=== PATIENT | female | born 1995 | race Two or more races ===

== ENCOUNTER 2017-01-20 10:49 | Emergency (ER) | payer OTHER ==
[2017-01-20 10:57] VITALS: BP 121/79
--- NOTE | 2017-01-20 11:34 | RAD ---
PA CHEST AND RIGHT RIB SERIES Clinical Indication: R ant rib pain after wrestling and 4 days Comparison: Two-view chest 04/23/2016. Findings: The cardiomediastinal silhouette is normal. Pulmonary vasculature is normal. The lungs are clear. No pleural effusion or pneumothorax is seen. There is no acute displaced rib fracture. A subtle or nondisplaced rib fracture could be obscured. IMPRESSION: 1. No acute cardiopulmonary process. 2. No acute displaced rib fracture.
--- NOTE | 2017-01-20 11:42 | PHYS DOC ---
General Chief Complaint: RIB PAIN Stated Complaint: RT RIB PAIN/FEVER Time Seen by MD: 11:02 Source: patient Exam Limitations: no limitations Problems: History of Present Illness Initial Comments Patient is a 22-year-old female who comes to the ED complaining of rib pain. Patient states she's had right anterior lower rib pain for the past several days. 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 Symptoms are worse with certain movements and when she presses on it, better with rest and ice applied topically. She denies any trouble breathing she has history of asthma but states those symptoms are currently under control. Allergies: Coded Allergies: No Known Drug Allergies (Unverified , 04/23/16) Past Medical History Medical History: asthma Surgical History: noncontributory Social History Smoker: non-smoker Alcohol: none Drugs: none Review of Systems Constitutional: denies chills, denies diaphoresis, denies fever, denies malaise Respiratory: denies cough, denies shortness of breath Cardiovascular: denies chest pain, denies palpitations, denies syncope Gastrointestinal: see HPI, abdominal pain, denies constipation, denies diarrhea , nausea, denies vomiting Genitourinary: denies dysuria, denies frequency, denies hematuria Musculoskeletal: see HPI, denies back pain, denies joint swelling, denies neck pain Psychiatric/Neurological: denies headache, denies numbness, denies paresthesia Hematologic/Lymphatic: denies blood clots, denies easy bleeding, denies easy bruising Physical Exam General Appearance: WD/WN, no apparent distress Ear, Nose, Throat: hearing grossly normal, normal ENT inspection, normal pharynx Neck: non-tender, supple Respiratory: normal breath sounds, no respiratory distress, other (TTP at R ant -inf costal margin) Cardiovascular: normal peripheral pulses, regular rate, rhythm Gastrointestinal: normal bowel sounds, soft (RUQ TTP no r/g/mass), no organomegaly Rectal: deferred Back: no CVA tenderness, no vertebral tenderness Extremities: normal range of motion, non-tender, normal inspection Neurologic/Psychiatric: food service lead II-XII nml as tested, no motor/sensory deficits, alert, normal mood/affect, oriented x 3 Skin: normal color, warm/dry Orders, Labs, Meds PATIENT: KALYANAYDEE OLIVERA ACCOUNT: [id number] : 1995 LOCATION: ER AGE: 22 SEX: F EXAM STATUS: REG ER ORD. PHYSICIAN: JEFFRY LYN DO REASON: R ant rib pain after wrestling PROCEDURE: RIBS RIGHT AND PA CHEST PA CHEST AND RIGHT RIB SERIES Clinical Indication: R ant rib pain after wrestling and 4 days Comparison: Two-view chest 04/23/2016. Findings: The cardiomediastinal silhouette is normal. Pulmonary vasculature is normal. The lungs are clear. No pleural effusion or pneumothorax is seen. There is no acute displaced rib fracture. A subtle or nondisplaced rib fracture could be obscured. IMPRESSION: 1. No acute cardiopulmonary process. 2. No acute displaced rib fracture. DICTATED AND SIGNED BY: ADRIANA KHAN MD DATE: 01/20/17 112 CC: PCP,NO; JEFFRY LYN DO ~ 1149: Plain films negative for rib pathology. Patient does have right upper quadrant pain/tenderness, further questioning it does get worse after eating and and has limited her by mouth intake the past 2 days. She hasn't had any nausea or vomiting no fever chills bowel or bladder symptoms. Appetite remains intact but eating causes discomfort. PATIENT: AYDEE BIGGS ACCOUNT: [id number] : 1995 LOCATION: ER AGE: 22 SEX: F EXAM STATUS: REG ER ORD. PHYSICIAN: JEFFRY LYN DO REASON: RUQ pain PROCEDURE: ABDOMEN LTD Right upper quadrant abdominal ultrasound History: RUQ pain x3-4 days. Comparison: None. Technique: Transabdominal ultrasound images are obtained. Findings: Visualized pancreas is unremarkable. Liver is normal in echogenicity. Right hepatic lobe measures 17.5 cm, upper limits of normal. No focal hepatic masses are identified. Portal flow is hepatopedal. Gallbladder has an unremarkable appearance. Common bile duct caliber is normal measuring 5 mm in diameter. The right kidney measures 10.7 cm in length and is without evidence of obstruction or stone. The renal pyramids are mildly prominent. IVC is patent. IMPRESSION: Unremarkable right upper quadrant ultrasound. DICTATED AND SIGNED BY: ADRIANA KHAN MD DATE: 01/20/17 [id number] CC: PCP,NO; JEFFRY LYN DO ~ Urinalysis with squamous epithelial contamination await culture and sensitivity. I discussed findings with the patient at length. I discussed [id number] prescription medications and activity modification. I discussed signs and symptoms to monitor and indications for urgent return to the department. Patient 's questions were answered to her satisfaction and she expressed agreement and understanding with the treatment plan. Departure Time of Disposition: 14:07 Disposition: 01 HOME, SELF-CARE Diagnosis: costochondritis, nausea, dehydration Condition: STABLE Patient Instructions: Costochondritis, [id number], Dehydration, Adult, Easy- to-Read, Nausea and Vomiting, [id number] Additional Instructions: As discussed, no emergent condition noted from today's visit to explain your symptoms. Rib pain seems to be musculoskeletal in nature, costochondritis. Given your decreased appetite, nausea, and slight elevation of white blood cells you may be developing a stomach virus. No athletics or strenuous activity thru 01/23, note given. Rx: zofran odt Clear liquids today, advance to bland diet as tolerated tomorrow. Aggressive hydration with gatorade, water. OTC tylenol/ibuprofen as needed. Follow up with a doctor in 3-5 days if no improvement. Return to ED with new or changing symptoms. JEFFRY LYN DO Jan 20, 2017 11:42
[2017-01-20] MEDS ORDERED: IV NORMAL SALINE 1,000ML 1,000 ML IV SCH (11:47)
[2017-01-20 12:18] LABS: BASO % 0 % (0-3); EOS # 0.1 x10^3/uL (0.0-0.7); EOS % 1 % (0-3); HEMATOCRIT 37.6 % (36.0-47.0); HEMOGLOBIN 12.7 g/dL (12.0-15.5); LYMPH # 1.8 x10^3/uL (1.0-4.8); LYMPH % 16 % (24-48); MEAN CORPUSCULAR HEMOGLOBIN 31 pg (25-35); MEAN CORPUSCULAR HGB CONC 34 g/dL (31-37); MEAN CORPUSCULAR VOLUME 90 fL (79-100); MONO # 0.9 x10^3/uL (0.0-1.1); MONO % 8 % (0-9); NEUT # 8.6 x10^3uL (1.8-7.7); NEUT % 75 % (31-73); PLATELET COUNT 265 x10^3/uL (140-400); RED BLOOD COUNT 4.16 x10^6/uL (3.50-5.40); RED CELL DISTRIBUTION WIDTH 13.8 % (11.5-14.5); WHITE BLOOD COUNT 11.5 x10^3/uL (4.0-11.0)
[2017-01-20] MEDS ORDERED: KETOROLAC 30 MG/ML VIAL. IV ONE (12:20)
[2017-01-20 12:26] LABS: BACTERIA,URINE FEW /HPF (0-FEW); BILIRUBIN,URINE NEG (NEG); CLARITY,URINE HAZY; COLOR,URINE YELLOW; GLUCOSE,URINE NEG (NEG); NITRITE,URINE NEG (NEG); RBC,URINE RARE /HPF (0-2); SQUAMOUS EPITHELIAL CELL,UR OCC /LPF; UROBILINOGEN,URINE 0.2 mg/dL (0.2 mg/dL)
[2017-01-20 12:32] LABS: ALBUMIN/GLOBULIN RATIO 0.7 (1.0-1.7); CALCIUM 8.5 mg/dL (8.5-10.1); CREATININE 0.7 mg/dL (0.6-1.0); GFR 106.7; POTASSIUM 4.3 mmol/L (3.5-5.1); TOTAL BILIRUBIN 0.3 mg/dL (0.2-1.0); TOTAL PROTEIN 7.1 g/dL (6.4-8.2)
--- NOTE | 2017-01-20 13:47 | RAD ---
Right upper quadrant abdominal ultrasound History: RUQ pain x3-4 days. Comparison: None. Technique: Transabdominal ultrasound images are obtained. Findings: Visualized pancreas is unremarkable. Liver is normal in echogenicity. Right hepatic lobe measures 17.5 cm, upper limits of normal. No focal hepatic masses are identified. Portal flow is hepatopedal. Gallbladder has an unremarkable appearance. Common bile duct caliber is normal measuring 5 mm in diameter. The right kidney measures 10.7 cm in length and is without evidence of obstruction or stone. The renal pyramids are mildly prominent. IVC is patent. IMPRESSION: Unremarkable right upper quadrant ultrasound.
[2017-01-20] MEDS ORDERED: ONDA4TAB10 PO (14:06)
== END 2017-01-20 14:35 | disposition home or self-care (01) ==
LOC: ER 10:49
DX: M94.0 Chondrocostal junction syndrome [Tietze] (principal); E86.0 Dehydration; R11.0 Nausea; J45.909 Unspecified asthma, uncomplicated
CPT/HCPCS: 36415; 71101; 76705; 80053; 81001; 83690; 85025; 87086; 96361; 96374; 99285; J1885; J7030

== ENCOUNTER 2017-01-20 20:52 | Inpatient (IN) | payer OTHER ==
[~2017-01-20] VITALS: Ht 157.5 cm; Wt 67.2 kg
[~2017-01-20 20:52] MED LIST: ONDA4TAB10 PO
[2017-01-20] MEDS ORDERED: ONDANSETRON PF 4 MG/2 ML VIAL. IV ONE (22:00)
[2017-01-20] MEDS ORDERED: IV NORMAL SALINE 1,000ML 1,000 ML IV SCH (22:00)
[2017-01-20 22:03] LABS: BASO % 0 % (0-3); EOS # 0.1 x10^3/uL (0.0-0.7); EOS % 1 % (0-3); HEMATOCRIT 38.5 % (36.0-47.0); HEMOGLOBIN 12.8 g/dL (12.0-15.5); LYMPH # 2.4 x10^3/uL (1.0-4.8); LYMPH % 19 % (24-48); MEAN CORPUSCULAR HEMOGLOBIN 30 pg (25-35); MEAN CORPUSCULAR HGB CONC 33 g/dL (31-37); MEAN CORPUSCULAR VOLUME 91 fL (79-100); MONO % 8 % (0-9); NEUT # 9.1 x10^3uL (1.8-7.7); NEUT % 72 % (31-73); PLATELET COUNT 305 x10^3/uL (140-400); RED BLOOD COUNT 4.23 x10^6/uL (3.50-5.40); RED CELL DISTRIBUTION WIDTH 13.7 % (11.5-14.5); WHITE BLOOD COUNT 12.6 x10^3/uL (4.0-11.0)
[2017-01-20 22:06] LABS: ALBUMIN 3.5 g/dL (3.4-5.0); ALBUMIN/GLOBULIN RATIO 0.7 (1.0-1.7); CALCIUM 8.8 mg/dL (8.5-10.1); CREATININE 0.8 mg/dL (0.6-1.0); GFR 91.4; POTASSIUM 3.8 mmol/L (3.5-5.1); TOTAL BILIRUBIN 0.4 mg/dL (0.2-1.0); TOTAL PROTEIN 8.3 g/dL (6.4-8.2)
--- NOTE | 2017-01-20 22:38 | RAD ---
Indication: Right flank pain and right lower quadrant pain and tenderness. Vomiting. Technique: Axial images and coronal and sagittal reformatted images are provided. No comparison is available. One or more of the following individualized dose reduction techniques were utilized for this examination: 1. Automated exposure control 2. Adjustment of the mA and/or kV according to patient size 3. Use of iterative reconstruction technique Findings: There is atelectasis in the lung bases. There is no pleural effusion. The heart is not enlarged. Solid organ evaluation is limited without contrast. Liver is grossly unremarkable. Gallbladder is normal in appearance. Spleen is not enlarged. Pancreas and adrenals are unremarkable. No obstructing or nonobstructing calculus is identified. Neither ureter is dilated, neither ureter can be followed in its entirety. Aorta is normal caliber. Small bowel is normal caliber. Colon is grossly unremarkable. Normal appendix is noted. It extends down into the pelvis. Bladder is unremarkable. Uterus is retroverted. IUD is noted. Calcified phleboliths are present. There is no free pelvic fluid. There is probably a cyst or follicle in the right ovary measuring 3 cm. IMPRESSION: No acute abdominal findings. Electronically signed by: Balaji Ragland MD (01/20/2017 10:34 PM) [facility]
--- NOTE | 2017-01-20 23:05 | PHYS DOC ---
Past History Past Medical History: No Pertinent History Past Surgical History: No Surgical History Alcohol Use: None Drug Use: None Adult General Chief Complaint Chief Complaint: ABDOMINAL PAIN HPI HPI Patient is a 22-year-old female, student at the [employer], who presents ambulatory to the ED with the complaint of right-sided abdominal pain. Patient was seen here earlier today with the same complaint. She had labs, rib x -rays, and right upper quadrant ultrasound. All were unrevealing. She was discharged. Patient states that she never did really feel better. The pain became more severe and moved lower on the right side of her abdomen. She had nausea and dry heaves. She's never had pain like this before. 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 She thought she might have hurt her side wrestling a few days ago but it has just gotten worse. Patient denies fever or chills. Denies cough or shortness of breath. Denies urinary symptoms. Patient is in good general health. Review of Systems Review of Systems Constitutional: Denies fever or chills [] HENT: Denies nasal congestion or sore throat [] Respiratory: Denies cough or shortness of breath [] Cardiovascular: Denies chest pain GI: As in history of present illness : Denies dysuria or hematuria [] Musculoskeletal: Denies back pain or joint pain [] Integument: Denies rash or skin lesions [] Neurologic: Denies headache, focal weakness or sensory changes [] All other systems were reviewed and found to be within normal limits, except as documented in this note. Current Medications Current Medications Current Medications Medications (Trade) Dose Ordered Sig/Rolando Start Time Stop Time Status Last Admin Dose Admin Fentanyl Citrate (Fentanyl 2ml Vial) 50 mcg PRN Q15MIN PRN 01/20/17 22:00 01/21/17 21:59 01/20/17 22:41 50 MCG Ondansetron HCl (Zofran) 4 mg 1X ONCE 01/20/17 22:00 01/20/17 22:01 DC 01/20/17 22:01 4 MG Sodium Chloride 1,000 ml @ 1,000 mls/hr Q1H 01/20/17 22:00 01/20/17 22:59 DC 01/20/17 22:01 1,000 MLS/HR Allergies Allergies Allergies Coded Allergies Type Severity Reaction Last Updated Verified No Known Drug Allergies 2/20/17 No Physical Exam Physical Exam Constitutional: Well developed, well nourished, tearful, uncomfortable, pain worsens with position change. Afebrile. HENT: Normocephalic, atraumatic, bilateral external ears normal, nose normal. [ ] Eyes: conjunctiva normal, no discharge. [] Neck: Normal range of motion, no stridor. [] Cardiovascular:Heart rate regular rhythm, no murmur [] Lungs & Thorax: Bilateral breath sounds clear to auscultation [] Abdomen: Bowel sounds normal, soft, nondistended, no masses, no pulsatile masses. Little to no tenderness to palpation on the left side of the abdomen. Tender to palpation on the right side of the abdomen with some guarding. Tenderness is upper and lower, no specific point tenderness at McBurney's point , it is more spread out. Skin: Warm, dry, no erythema, no rash. [] Back: Tenderness to palpation on the right side of the back. No visible muscle spasm. No evidence of trauma. Extremities: No tenderness, no cyanosis, no clubbing, ROM intact, no edema. [] Neurologic: Alert and oriented X 3, normal motor function, no focal deficits noted. [] Current Patient Data Vital Signs Vital Signs Date Time Temp Pulse Resp B/P (MAP) Pulse Ox O2 Delivery O2 Flow Rate FiO2 01/20/17 22:41 16 Room Air 01/20/17 20:55 97.7 86 100 Lab Results Laboratory Tests Test 01/20/17 21:15 White Blood Count 12.6 x10^3/uL (4.0-11.0) H Red Blood Count 4.23 x10^6/uL (3.50-5.40) Hemoglobin 12.8 g/dL (12.0-15.5) Hematocrit 38.5 % (36.0-47.0) Mean Corpuscular Volume 91 fL (79-100) Mean Corpuscular Hemoglobin 30 pg (25-35) Mean Corpuscular Hemoglobin Concent 33 g/dL (31-37) Red Cell Distribution Width 13.7 % (11.5-14.5) Platelet Count 305 x10^3/uL (140-400) Neutrophils (%) (Auto) 72 % (31-73) Lymphocytes (%) (Auto) 19 % (24-48) L Monocytes (%) (Auto) 8 % (0-9) Eosinophils (%) (Auto) 1 % (0-3) Basophils (%) (Auto) 0 % (0-3) Neutrophils # (Auto) 9.1 x10^3uL (1.8-7.7) H Lymphocytes # (Auto) 2.4 x10^3/uL (1.0-4.8) Monocytes # (Auto) 1.0 x10^3/uL (0.0-1.1) Eosinophils # (Auto) 0.1 x10^3/uL (0.0-0.7) Basophils # (Auto) 0.0 x10^3/uL (0.0-0.2) Sodium Level 137 mmol/L (136-145) Potassium Level 3.8 mmol/L (3.5-5.1) Chloride Level 102 mmol/L (98-107) Carbon Dioxide Level 26 mmol/L (21-32) Anion Gap 9 (6-14) Blood Urea Nitrogen 15 mg/dL (7-20) Creatinine 0.8 mg/dL (0.6-1.0) Estimated GFR (Cockcroft-Gault) 91.4 BUN/Creatinine Ratio 19 (6-20) Glucose Level 99 mg/dL (70-99) Calcium Level 8.8 mg/dL (8.5-10.1) Total Bilirubin 0.4 mg/dL (0.2-1.0) Aspartate Amino Transferase (AST) 15 U/L (15-37) Alanine Aminotransferase (ALT) 20 U/L (14-59) Alkaline Phosphatase 119 U/L (46-116) H Total Protein 8.3 g/dL (6.4-8.2) H Albumin 3.5 g/dL (3.4-5.0) Albumin/Globulin Ratio 0.7 (1.0-1.7) L Lipase 101 U/L (73-393) EKG EKG [] Radiology/Procedures Radiology/Procedures CT scan of the abdomen and pelvis read by the radiologist. Normal appendix. No evidence of kidney stone. Otherwise normal CT scan.[] Course & Med Decision Making Course & Med Decision Making Pertinent Labs and Imaging studies reviewed. 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 The pain has been going on for about 4 days now. She first thought she pulled her injured something wrestling. The pain has worsened. Evaluation earlier today was unrevealing. The patient returned having worse pain. Labs unrevealing except for mild leukocytosis. CT scan of the abdomen and pelvis normal. The patient required IV pain and nausea medication for control of her symptoms. I discussed the findings with the patient. She lives in the dorm at the [facility]. She was in significant discomfort on presentation. I would prefer to admit her to the hospital for observation, IV fluids, pain and nausea medication if needed. Patient is agreeable to that plan. I discussed the case with Dr. Saunders. She will admit the patient. We agreed to admit the patient to observation status. She has no surgical diagnosis or need for specific inpatient treatment at this time, except for symptom control. We will give her a dose of IV Toradol. I wrote bridge orders. [] Dragon Disclaimer Dragon Disclaimer This electronic medical record was generated, in whole or in part, using a voice recognition dictation system. Departure Departure: Impression: Primary Impression: Right sided abdominal pain Disposition: ADMITTED INPATIENT Admitting Physician: Minda Saunders Condition: STABLE Referrals: PCP,NO (PCP) SURJIT MICHAELS MD Jan 20, 2017 23:05
[2017-01-20] MEDS ORDERED: KETOROLAC 30 MG/ML VIAL. IV ONE (23:15)
[2017-01-20] MEDS ORDERED: ONDANSETRON PF 4 MG/2 ML VIAL. IV PRN (23:30)
[2017-01-20 23:53] VITALS: BP 108/73
[2017-01-20] MEDS: IV NORMAL SALINE 1,000ML 1,000 ML IV SCH (23:57)
[2017-01-21] MEDS: IV NORMAL SALINE 1,000ML 1,000 ML IV SCH ×2 (05:16→20:49)
[2017-01-21] MEDS ORDERED: KETOROLAC 30 MG/ML VIAL. ONE (06:22)
[2017-01-21 06:30] VITALS: BP 100/63
[2017-01-21] MEDS ORDERED: KETOROLAC 30 MG/ML VIAL. IV ONE (06:30)
[2017-01-21 07:20] LABS: BASO % 0 % (0-3); EOS # 0.1 x10^3/uL (0.0-0.7); EOS % 1 % (0-3); HEMATOCRIT 32.6 % (36.0-47.0); HEMOGLOBIN 11.3 g/dL (12.0-15.5); LYMPH # 2.4 x10^3/uL (1.0-4.8); LYMPH % 23 % (24-48); MEAN CORPUSCULAR HEMOGLOBIN 31 pg (25-35); MEAN CORPUSCULAR HGB CONC 35 g/dL (31-37); MEAN CORPUSCULAR VOLUME 90 fL (79-100); MONO # 0.8 x10^3/uL (0.0-1.1); MONO % 7 % (0-9); NEUT # 7.3 x10^3uL (1.8-7.7); NEUT % 69 % (31-73); PLATELET COUNT 238 x10^3/uL (140-400); RED BLOOD COUNT 3.62 x10^6/uL (3.50-5.40); RED CELL DISTRIBUTION WIDTH 13.6 % (11.5-14.5); WHITE BLOOD COUNT 10.6 x10^3/uL (4.0-11.0)
[2017-01-21 07:31] LABS: ALBUMIN 2.7 g/dL (3.4-5.0); ALBUMIN/GLOBULIN RATIO 0.7 (1.0-1.7); CALCIUM 8.1 mg/dL (8.5-10.1); CREATININE 0.6 mg/dL (0.6-1.0); GFR 127.5; MAGNESIUM 1.6 mg/dL (1.8-2.4); POTASSIUM 3.6 mmol/L (3.5-5.1); TOTAL BILIRUBIN 0.3 mg/dL (0.2-1.0); TOTAL PROTEIN 6.5 g/dL (6.4-8.2)
[2017-01-21 11:26] VITALS: BP 112/66
[2017-01-21] MEDS: KETOROLAC 30 MG/ML VIAL. IV PRN ×2 (13:41→20:49)
--- NOTE | 2017-01-21 16:07 | HP ---
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 She apparently was seen yesterday and was extensively investigated. She has right-sided rib view, which showed that the cardiomediastinal silhouette is normal, pulmonary vasculature is normal. The lungs are clear, no pleural effusion or pneumothorax seen. There is no acute displaced rib fracture, a subtle nondisplaced fracture could be obscured. She did have also right upper quadrant abdominal ultrasound, which showed that the liver is normal in echogenicity, right hepatic lobe measures 17.5, upper limit of normal. No focal hepatic mass is identified. Portal flow is. The gallbladder has an unremarkable appearance, common bile duct caliber is normal, measuring 5 mm in diameter. The right kidney measures 10.7 cm in length and is without evidence of obstruction or stones and impairments are mildly prominent and the inferior vena cava vein is patent. She apparently had also a CT scan of the abdomen and pelvis, which showed that there is no acute abdominal finding. The patient was discharged back to the home, no need to come back again, still complaining of severe pain in her right upper quadrant and she was basically admitted for pain management. Her lab work yesterday showed white cell count of 12,600, hemoglobin 12.8, hematocrit 38, MCV 91, and platelet count of 305,000. Her chemistry was also unremarkable. Urinalysis showed that the urine test was negative. Her urine was sent for culture and it did grow more than 100,000 colony forming units per mL of Gram-negative rods. The identification and sensitivity is still pending at the time of this dictation. PAST MEDICAL HISTORY: Unremarkable. PAST SURGICAL HISTORY: Also unremarkable. FAMILY HISTORY: Unremarkable. SOCIAL HISTORY: She is a student at [employer]. She does not smoke, drink alcohol, or use any recreational drugs. REVIEW OF SYSTEMS: As per history of present illness. PHYSICAL EXAMINATION GENERAL: When I examined her, she was sitting at the edge of the bed comfortably, in no apparent respiratory distress and no pallor, jaundice, cyanosis, or thyromegaly. No jugular venous distension. No limb edema. VITAL SIGNS: Her heart rate was 86, blood pressure was 126/71, temperature was 97.7, respiratory rate was 18, and oxygen saturation was 100% on room air. HEAD, EYES, EARS, NOSE AND THROAT: Showed normocephalic, atraumatic. NECK: Supple. HEART: Showed normal first and second heart sounds with no gallop, rub, or murmur. CHEST: Clear to auscultation. No crepitation or rhonchi. ABDOMEN: Distended, soft, nontender. No guarding or rigidity. No organomegaly. Hernial orifice is intact. Bowel sounds normal. She has marked tenderness mostly in the right upper quadrant. NEUROLOGIC: Neurologically, she is awake, alert, responding appropriately. Cranial nerves are intact. She moves extremities without difficulty. She ambulates without assistance or assistive devices. LABORATORY DATA: Her lab work on admission showed a white cell count of 12,600, hemoglobin 12.8, hematocrit 38, MCV 91, and platelet count 305,000. Her chemistry showed a serum sodium 137, potassium 3.8, chloride 102, bicarbonate 26, anion gap of 9, BUN 15, creatinine 0.8, estimated GFR was 91 mL per minute. Her glucose was 99. Calcium was 8.8. Total bilirubin, AST, ALT were normal. Alkaline phosphatase was slightly elevated. Her total protein was 8.3, albumin 2.5. Her lipase was 105. Urinalysis was negative for test. IMAGING STUDIES: She did have the right-sided rib views, right upper quadrant abdominal ultrasound as well as CT scan of the abdomen and pelvis are all unremarkable and showed no evidence of any abnormal pathology. Her uterus is retroverted with intrauterine device noted. Calcified phleboliths are present. There is no free fluid. There is probably cyst or follicle and the right ovary measuring 3 cm. IMPRESSION AND PLAN: In summary, this is a 22-year-old female patient, who came with sudden onset of severe pain in her right upper quadrant. She is in the wrestling team, although her right-sided rib views are negative and I am not sure whether there is nondisplaced rib fracture that cannot be detected on a plain x-ray. I will arrange for her to have a total body bone scan and decide on further management accordingly. WIL CANAS MD DR: SAÚL/isaias JOB#: [id number] / [id number]
[2017-01-21 16:10] VITALS: BP 114/68
[2017-01-21 19:26] VITALS: BP 131/82
[2017-01-21] MEDS: LACTOBACILLUS RHAMNOSUS GG 1 CAPSULE. PO SCH (20:48)
[2017-01-21 23:44] VITALS: BP 114/68
[2017-01-22] MEDS: KETOROLAC 30 MG/ML VIAL. IV PRN ×3 (03:27→19:08)
[2017-01-22 05:50] VITALS: BP 103/66
[2017-01-22] MEDS: IV NORMAL SALINE 1,000ML 1,000 ML IV SCH ×2 (06:00→16:00)
[2017-01-22 06:49] LABS: HEMATOCRIT 32.3 % (36.0-47.0); HEMOGLOBIN 11.1 g/dL (12.0-15.5); RED BLOOD COUNT 3.62 x10^6/uL (3.50-5.40); RED CELL DISTRIBUTION WIDTH 13.5 % (11.5-14.5); WHITE BLOOD COUNT 9.5 x10^3/uL (4.0-11.0)
[2017-01-22 07:15] LABS: ALBUMIN 2.5 g/dL (3.4-5.0); ALBUMIN/GLOBULIN RATIO 0.6 (1.0-1.7); CALCIUM 8.2 mg/dL (8.5-10.1); CREATININE 0.6 mg/dL (0.6-1.0); GFR 127.5; POTASSIUM 3.6 mmol/L (3.5-5.1); TOTAL BILIRUBIN 0.3 mg/dL (0.2-1.0); TOTAL PROTEIN 6.6 g/dL (6.4-8.2)
[2017-01-22] MEDS: LACTOBACILLUS RHAMNOSUS GG 1 CAPSULE. PO SCH ×2 (09:25→20:28)
[2017-01-22 10:34] VITALS: BP 101/63
--- NOTE | 2017-01-22 14:51 | RAD ---
EXAM: Bone scintigraphy. HISTORY: Right upper quadrant and rib pain. Recent wrestling injury. Comparison is made with CT of 01/20/2017. TECHNIQUE: Following the intravenous injection of 26.0 mCi of Tc-99m labeled methylene diphosphonate (MDP), delayed images of the whole body were performed in anterior and posterior projections. Spot images of the ribs were obtained bilaterally. FINDINGS: There are no foci of intense uptake along the ribs suggestive of fracture. There are no foci of intense uptake suggestive of metastatic disease or suspicious lesions. There is mild uptake along the occiput in the midline which may reflect the normal occipital eminence. There is a small focus of increased uptake along the right lateral tibial plateau. There is also focal uptake in the right greater than left sternoclavicular joints. There is asymmetric uptake within the right renal collecting system. The left renal shadow is not well seen. IMPRESSION: 1. No rib fractures identified. 2. Mildly prominent right renal collecting system, while the left is not well seen. There is no clear hydronephrosis on recent cross-sectional imaging. Correlate to exclude pyelonephritis or other urologic causes of pain. 3. Small focus of increased uptake along the lateral compartment of the right knee. Correlate for mild stress reaction or early degenerative change. 4. A focus of mild uptake along the occiput is likely the normal occipital eminence. CT of the head could further exclude an osseous lesion only if there is persistent concern. 5. Focal uptake at the sternoclavicular joints may reflect repetitive stress or degenerative change.
[2017-01-22 15:18] VITALS: BP 119/70
[2017-01-22] MEDS: oxyCODONE IR 5 MG TABLET PO PRN ×2 (16:01→20:29)
[2017-01-22 19:18] VITALS: BP 126/80
[2017-01-22] MEDS ORDERED: DOCUSATE SODIUM 100 MG CAPSULE PO PRN (21:00)
[2017-01-22 23:23] VITALS: BP_SYST 124; BP_SYST 146; BP_DIAS 79; BP_DIAS 93
[2017-01-23] MEDS: oxyCODONE IR 5 MG TABLET PO PRN ×3 (00:39→14:44)
--- NOTE | 2017-01-23 02:46 | PN ---
DATE: 01/22/2017 SUBJECTIVE: The patient is resting flat, comfortably in bed, in no apparent distress. She seems to be doing much better. Her pain is less. Her appetite improved. She is now eating and drinking. Her urine culture showed a growth of more than 100,000 colony forming units per mL of Escherichia coli sensitive to almost all antibiotics. We did start her already on ceftriaxone yesterday and she did receive another dose this morning. We did a bone scan, which showed that there is no evidence of any rib fractures; however, she has mildly prominent right renal collecting system while the left is not well seen. There is no clear hydronephrosis or recent cross sectional imaging, but the radiologist recommended to exclude pyelonephritis, other urologic causes of pain. She has a small focus of increased uptake along the lateral compartment of the right knee, correlated for mild stress reaction or early degenerative changes, focus of mild uptake along the occiput is likely a normal occipital eminence and focal uptake at the sternoclavicular joint may reflect elevated ____. PHYSICAL EXAMINATION: GENERAL: On examining her this afternoon, she was resting flat, comfortably in bed, in no apparent respiratory distress, pale, no jaundice, cyanosis or thyromegaly. No jugular venous distension. No limb edema. VITAL SIGNS: Her heart rate was 77, blood pressure 101/63, temperature was 97.9, respiratory rate 20, and oxygen saturation was 98%. The rest of clinical examination is unremarkable and has not really changed. Her intake over the last 24 hours was 3300 and no output was recorded. LABORATORY DATA: Her lab work this morning showed a white cell count is down to 9500, hemoglobin 11, hematocrit 32, MCV 89, platelet count 258,000. Her chemistry showed a serum sodium of 139, potassium 3.6, chloride 106, bicarbonate 22, anion gap of 11, BUN 8, creatinine 0.6, estimated GFR was 127 mL per minute. Her glucose was 82, calcium was 8.2. Total bilirubin, AST, ALT, alkaline phosphatase were normal. Total protein was 6.6, albumin 2.5 and lipase was 101. ASSESSMENT: Pain in the right upper quadrant with multiple modalities of investigation that were unremarkable. She has urinary tract infection, bone scan showed prominent right side collecting system, it could be explained by the nephritis. She did grow E. coli, sensitive to all antibiotics. PLAN: My plan is to continue with IV ceftriaxone ____ switch her to oral pain medication. We will repeat all her labs tomorrow and if she remains stable, has been up and about, she can be discharged back to the [facility]. WIL CANAS MD DR: SAÚL/isaias JOB#: [id number] / [id number]
[2017-01-23] MEDS: IV NORMAL SALINE 1,000ML 1,000 ML IV SCH ×2 (04:20→11:04)
[2017-01-23 05:30] VITALS: BP 118/69
[2017-01-23] MEDS: LACTOBACILLUS RHAMNOSUS GG 1 CAPSULE. PO SCH (07:43)
[2017-01-23] MEDS: KETOROLAC 30 MG/ML VIAL. IV PRN (12:53)
[2017-01-23 14:49] VITALS: BP 105/68
[2017-01-23] MEDS ORDERED: AMOX500C PO (15:09)
[2017-01-23] MEDS ORDERED: OXYC5CAP PO (15:10)
--- NOTE | 2017-01-23 17:41 | DS ---
DATE OF DISCHARGE: 01/23/2017 HOSPITAL COURSE: The patient is resting slightly propped up in bed, sleeping comfortably in no apparent distress. She states that she has no more pain. She is tolerating her food without any problem. No nausea, no vomiting. She has been afebrile, hemodynamically stable. Her white cell count is normal. Her urine culture has grown more than 100,000 colony forming units per mL of gram-negative rods identified as Escherichia coli sensitive to all antibiotics. She was started on ceftriaxone. PHYSICAL EXAMINATION: GENERAL: When I examined her this afternoon, she looked well and was clearly in no apparent respiratory distress, pale, but no jaundice, cyanosis, or thyromegaly. No jugular venous distention. No limb edema. VITAL SIGNS: Her heart rate was 66, blood pressure was 105/68, temperature was 97.6, respiratory rate 20, and oxygen saturation was 95%. HEAD, EYES, EARS, NOSE AND THROAT: Showed normocephalic, atraumatic. NECK: Supple. HEART: Showed normal first and second heart sound with no gallop, rub, or murmur. CHEST: Clear to auscultation. No crepitation or rhonchi. ABDOMEN: Distended, soft, nontender. No guarding or rigidity. No organomegaly. Hernial orifice intact. Bowel sound is normal. NEUROLOGIC: She was awake, alert, responding appropriately. Cranial nerves intact. She moves extremities without difficulty. She ambulates without assistance or assistive devices. LABORATORY DATA: Her lab work this morning showed a white cell count of 9500, hemoglobin 11, hematocrit 32, MCV 89 and platelet count 258,000. Her chemistry showed a serum sodium of 139, potassium 3.6, chloride 106, bicarbonate 22, anion gap of 11, BUN 8, creatinine 0.6. Estimated GFR was 127 mL per minute. Her calcium 8.2. Total bilirubin, AST, ALT, alkaline phosphatase were normal. Total protein was 6.6, albumin 2.5. As I stated, her urine culture has grown more than 100,000 colony forming units per mL of Escherichia coli sensitive to all antibiotics. She will be discharged back to the [facility] to continue on amoxicillin. She will continue on amoxicillin 500 mg 3 times a day for 5 more days and oxycodone 5 mg every 6 hours as needed. FINAL DISCHARGE DIAGNOSES: 1. Right upper quadrant abdominal pain. 2. Urinary tract infection. WIL CANAS MD DR: SAÚL/isaias JOB#: [id number] / [id number]
== END 2017-01-23 15:27 | disposition home or self-care (01) | DRG 690 ==
LOC: ER 20:52 → 1 SOUTH 23:07 → OBSVTOIN 01-22 01:33
PROVIDERS: ADMIT Family Medicine; ATTEND Family Medicine
DX: N39.0 Urinary tract infection, site not specified (principal); B96.20 Unspecified Escherichia coli [E. coli] as the cause of diseases classified elsewhere; F43.9 Reaction to severe stress, unspecified
CPT/HCPCS: 36415; 74176; 78306; 80053; 81025; 82550; 83690; 83735; 85025; 85027; 96361; 96374; A9503; G0378; G0379; J0696; J1885; J2405; J3010; 99285-25; J7030

== ENCOUNTER → 2018-02-07 | Outpatient (CLI) | payer BC ==
[~2018-02-07] MED LIST changes: +AMOX500C PO; +OXYC5CAP PO
--- NOTE | 2018-02-08 10:25 | RAD ---
Complete pelvic ultrasound HISTORY: Intrauterine device, pelvic pain. TECHNIQUE: Transabdominal transvaginal transducers were utilized with grayscale and duplex Doppler sonography. FINDINGS: Transabdominal imaging demonstrates retroverted uterus measuring 8.3 x 2.9 x 5.2 cm. Limited visualization of the IUD and endometrium transabdominal. Left ovarian 4 cm cystic lesion described further transvaginally. Right ovary measures 2.9 x 2.6 x 1.9 cm. Transvaginal imaging demonstrates retroverted uterus measuring 6.2 x 2.9 x 4.7 cm. Normal positioning of the intrauterine device within the uterine endometrial canal. Neutral thickness is 2 mm. No uterine mass. No endometrial hematoma. Right ovary measures 2.6 x 2.0 x 2.8 cm with a few small follicles. Left ovary is enlarged measuring 6.3 x 4.0 x 4.8 cm essentially replaced by a simple unilocular cyst which measures 5.8 x 3.8 x 4.8 cm. There is intact left ovarian blood flow about the periphery of the cyst documented. There is intact right ovarian blood flow. No pelvic fluid. IMPRESSION: 1. Normal position of the intrauterine device. 2. Simple unilocular anechoic cyst of the left ovary measuring 6.3 cm maximum diameter. This may be a follicular cyst given the simple nature. A cystadenoma is not excluded although given the absence of internal septations or nodules is felt to be less likely. Based on the size of the cyst continued gynecologic management and sonographic follow-up is advised. Electronically signed by: Kunal Sanders MD (02/08/2018 10:22 AM) [facility]
== END | disposition home or self-care (01) ==
LOC: US 10:48
PROVIDERS: ATTEND Registered Nurse
DX: N83.292 Other ovarian cyst, left side (principal); N85.4 Malposition of uterus; Z97.5 Presence of (intrauterine) contraceptive device
CPT/HCPCS: 76830; 76856